=== PATIENT | female | born 1965 | race Caucasian/White ===

== ENCOUNTER → 2019-08-12 12:32 | Outpatient (CLI) | payer MEDICAID, SELFPAY ==
--- NOTE | 2019-08-12 12:37 | BI_ITS ---
MAMMOGRAPHY - BILATERAL SCREENING REASON FOR EXAM: Female, 54 years old. Routine annual screening examination. PERTINENT HISTORY: Non-contributory. TECHNIQUE: Digital bilateral breast nick (3D mammographic acquisition) in the CC and MLO projections. 2-D mediolateral oblique (MLO) and craniocaudad (CC) views of both breasts were obtained. CAD: Full Field Digital Mammography with Computer Added Detection was performed. COMPARISON: Comparison is made with prior examination dated September 04, 2012 and November 22, 2016. FINDINGS: Breast Composition: There are scattered areas of fibroglandular density. There are no dominant masses or suspicious calcifications. No other significant abnormalities are identified. There has been no significant change since the prior study. BI/SCREEN MAMM (CAD) W/NICK BILAT IMPRESSION: Stable bilateral screening mammogram. Yearly follow-up mammogram recommended. (A) ASSESSMENT CATEGORY: BIRADS Category 1: Negative. A letter regarding these results will be sent to the patient by the facility within 30 days. Approximately 10% of breast cancers are not detected by mammography. A normal mammogram should not delay biopsy of a clinically suspicious abnormality. [id number] Electronically Signed: Triston Serrano, at 8:40 EDT , Service support ,
== END ==
PROVIDERS: Family Provider Nurse Practitioner Family; PCP Nurse Practitioner Family; Referring Provider Nurse Practitioner Family
DX: Z12.31 Encounter for screening mammogram for malignant neoplasm of breast (principal)
CPT/HCPCS: 77063; 77067

== ENCOUNTER 2020-02-08 16:47 | Emergency (ER) | payer MEDICAID, SELFPAY ==
[2020-02-08 16:49] VITALS: BP 139/75; PULSE 69; RESP 17; TEMP 36.7; O2SAT 97; BMI 32.1
[2020-02-08 17:15] VITALS: BP 137/69; PULSE 64; RESP 15; O2SAT 98
--- NOTE | 2020-02-08 17:17 | EKG12_ITS ---
Test Reason : LOWER EXTREM PAIN Blood Pressure : / mmHG Vent. Rate : 062 BPM Atrial Rate : 062 BPM P-R Int : 164 ms QRS Dur : 092 ms QT Int : 456 ms P-R-T Axes : 045 021 049 degrees QTc Int : 462 ms Normal sinus rhythm Normal ECG Confirmed by RIGO SMITH, ALISON ([id number]), make up editor ASAD LINARES ([id number]) on 02/12/2020 9:09:48 AM Referred By: CINDY Confirmed By:ALISON SIERRA MD
--- NOTE | 2020-02-08 17:20 | ED.VIS.GEN ---
History of Present Illness Chief Complaint: Lower Extremity Injury Detail of Chief Complaint: Right thigh pain Informant: Patient Onset: Days Context: Gradual Onset Timing: Waxes and wanes Current Severity: Mild Maximum Severity: Severe Narrative: Patient presents with intermittent right thigh pain for the past 3 days. She states when this occurs she will have pain that radiates up into her abdomen, chest, and she feels short of breath and lightheaded. She denies history of blood clots. She denies recent history of injury. She was admitted to [facility] and had a nuclear stress test was unremarkable. While there she had arterial studies of her legs performed. Right leg ROBYN is 1.06, left is 1.04. - Past Medical History (1) Anxiety and depression Status: Chronic (2) Diabetes Status: Chronic (3) H/O heart artery stent Status: Chronic Past Medical History - Allergies and Home Meds Allergies/Adverse Reactions: Allergies Penicillins Allergy (Verified 02/08/20 16:48) Hives metformin Adverse Reaction (Verified 02/08/20 16:48) Upset Stomach Primary Care Physician: Isabel Francisco NP-C [Primary Care Provider] - Prior records reviewed: Yes Lives: With Family Smoking Status: Current every day smoker Review of Systems General: Denies: Chills, Fever Eyes: Denies: Visual changes - bilaterally ENT: Denies: Bilateral ear pain Cardiovascular: Reports: Chest pain. Denies: Palpitations, Heart racing Respiratory: Reports: Dyspnea. Denies: Cough, Sputum Gastrointestinal: Reports: Abdominal pain. Denies: Nausea, Vomiting, Diarrhea Genitourinary: Denies: Dysuria Musculoskeletal: Reports: Extremity Pain. Denies: Swelling Skin: Denies: Rash Neurological: Denies: Headache, Weakness, Parasthesia Hematologic: Denies: Easy bruising, Easy bleeding Allergy: Denies: Uticaria Physical Exam Vital Signs/Narrative: Vital Signs Temp Pulse Resp BP Pulse Ox 02/08/20 17:15 64 15 137/69 H 98 02/08/20 16:49 98.1 F 69 17 139/75 H 97 General: Well nourished, Well developed Head: Normocephalic ENT: Moist mucous membranes Neck: Supple Cardiovascular: Regular rate, Regular rhythm Respiratory: No distress, CTA bilaterally Abdomen: Soft, Nontender, Normal bowel sounds Extremities: - - Reproducible tenderness in the right thigh this time. No significant edema. No overlying skin changes. No palpable cords. Skin: Normal color, - - Strong distal pulses. Neurological: Alert, Oriented x3, Normal Strength, Normal Sensation Psychological: Normal affect Diagnostic/Tx/Re-eval Impressions Chest X-Ray 02/08/20 17:25 IMPRESSION: Minimal fibrosis or atelectasis of the left lung base. Electronically Signed: Ector Leiva MD at 17:49 EDT , Service support , Chest CTA 02/08/20 18:01 IMPRESSION: Normal CTA chest examination, without a demonstrated pulmonary embolism or arterial dissection. Coronary arterial calcifications are present. Electronically Signed: Ector Leiva MD at 19:40 EDT , Service support , 02/08/20 17:25 Chest 1 View (Portable) [RAD] Stat 02/08/20 18:01 CTA Chest W/WO Contrast [CT] Stat Laboratory Results 02/08/20 02/08/20 02/08/20 17:25 17:25 17:25 WBC 6.6 RBC 4.63 Hgb 14.4 Hct 41.1 MCV 88.8 MCH 31.1 MCHC 35.0 RDW Std Deviation 36.5 RDW Coeff of Chandana 11.3 L Plt Count 205 MPV 10.7 Immature Gran % (Auto) 0.300 Neut % (Auto) 58.4 Lymph % (Auto) 33.3 Harmon % (Auto) 4.2 Eos % (Auto) 3.3 Baso % (Auto) 0.5 Absolute Neuts (auto) 3.9 Absolute Lymphs (auto) 2.21 Nucleated RBC % 0 D-Dimer Quant (PE/DVT) 1.04 H* Sodium 136 Potassium 4.1 Chloride 104 Carbon Dioxide 25.0 Anion Gap 7 BUN 9 Creatinine 0.90 Estim Creat Clear Calc 59.11 Est GFR (MDRD) Af Amer 83 Est GFR (MDRD) Non-Af 69 BUN/Creatinine Ratio 10.0 Glucose 248 H Calcium 9.1 Troponin I < 0.015 - EKG Initial EKG Interpretation: Sinus Rhythm - Sinus at 62 with no acute ischemia. - Medical Decision Making Test results discussed with the patient. Her d-dimer is elevated. CTA of the chest is unremarkable. I do not have ultrasound available today to scan her leg. She will be given a dose of Lovenox and ordered for a ultrasound of her leg tomorrow. She voices understanding and agreement. ED Disposition - Plan for ED Patient: Disposition: Home or Assisted Living Diagnosis: Leg pain Instructions: Myalgias Referrals: Isabel Francisco, ANURADHA-C [Primary Care Provider] - Additional Instructions: You have been ordered to have an ultrasound of your leg tomorrow. If you do not hear from the hospital, please call in to check your appointment time.
--- NOTE | 2020-02-08 17:25 | RAD_ITS ---
STUDY: X-RAY CHEST REASON FOR EXAM: Female, 54 years old. LEG PAIN AND WEAKNESS WITH SOB TECHNIQUE: Single AP portable view of the chest. COMPARISON: None. FINDINGS: There is minimal fibrosis or atelectasis left lung base. There is no demonstrated pleural abnormality. Normal size heart. Normal mediastinum and mario. Normal visualized pulmonary arteries. Normal visualized aortic arch and descending thoracic aorta. Normal visualized thoracic spine. Normal visualized ribs, clavicles, and shoulders. There is no demonstrated abnormality of the visualized soft tissue structures of the upper abdomen. RAD/Chest 1 View (Portable) IMPRESSION: Minimal fibrosis or atelectasis of the left lung base. Electronically Signed: Ector Leiva MD at 17:49 EDT , Service support ,
[2020-02-08 17:34] LABS: Absolute Lymphocyte Count 2.21 X10^3/uL (0.83-4.51); Absolute Neutrophil Count 3.9 X10^3/uL (2.0-7.7); Basophil# 0.03 X10^3/uL; Basophil% 0.5 % (0-1); Eosinophil# 0.22 X10^3/uL; Eosinophils% 3.3 % (0-5); Hematocrit 41.1 % (37-47); Hemoglobin 14.4 g/dL (12.0-15.0); Lymphocyte # 2.21 X10^3/ul (4.0); Lymphocyte % 33.3 % (19-41); Mean Corpuscular Hgb 31.1 pg (27.0-32.0); Mean Corpuscular Volume 88.8 fL (81-99); Mean Platelet Vol. 10.7 fl (6.2-12.0); Monocyte# 0.28 X10^3/uL; Monocyte% 4.2 % (0-10); NRBC Flagged by Analyzer 0 % (0-5); Neutrophil # 3.88 X10^3/uL (2.7-7.7); Neutrophil % 58.4 % (47-70); Platelet Count 205 K/mm3 (150-450); RBC Distribution Width CV 11.3 % (11.6-14.6); RBC Distribution Width SD 36.5 fl (35.1-43.9); Red Blood Count 4.63 M/mm3 (4.2-5.4); White Blood Count 6.6 K/mm3 (4.4-11.0)
[2020-02-08 17:41] VITALS: BP 113/69; PULSE 65; RESP 14; O2SAT 98
[2020-02-08 17:52] LABS: Anion Gap 7 (5-15); BUN 9 mg/dL (7-18); Calcium,Total 9.1 mg/dL (8.5-10.1); Chloride 104 mmol/L (98-107); EST Glomerular Filtration Rate 69 mL/min (>60); Est Glom Filt Rate - Afr Amer 83 mL/min (>60); Estimated Creatinine Clearance 59.11 ml/min; Glucose 248 mg/dL (74-106); Potassium 4.1 mmol/L (3.5-5.1); Sodium Level 136 mmol/L (136-145)
[2020-02-08 17:57] LABS: D-Dimer Quantitative (DVT/PE) 1.04 FEU/ug/m (0.27-0.49)
--- NOTE | 2020-02-08 18:00 | NURSING ---
call from lab , d-dimer 1.04. dr. mya cannon .
--- NOTE | 2020-02-08 18:01 | CT_ITS ---
STUDY: CTA CHEST REASON FOR EXAM: Female, 54 years old. SOB, DIZZINESS, RIGHT LEG PAIN RADIATION DOSAGE (If Supplied By Facility): CTDIvol = ( 11.81 ) mGy, DLP = ( 506.09 ) mGycm TECHNIQUE: The examination was performed with the intravenous administration of 100ML ISOVUE 370. Post-processing of the angiographic images was performed, with multiplanar reformation and 3D reconstruction. Individualized dose optimization techniques were used for this CT. COMPARISON: None. FINDINGS: Normal enhancement of the main pulmonary artery and right and left pulmonary arteries. Normal enhancement of the bilateral peripheral pulmonary arteries. There is no demonstrated pulmonary embolism. Normal thoracic aorta and visualized great vessels. There is no demonstrated aortic dissection. The heart size is within normal limits. There is no pericardial effusion. Coronary arterial calcifications are present. Normal mediastinum. Normal hilar regions. Normal visualized trachea and bronchi. The lungs are well expanded. Normal pulmonary parenchyma. Normal pleura. Normal chest wall structures. There is mild endplate spondylosis of the thoracic spine. Normal visualized upper abdomen. CT/CTA Chest W/WO Contrast IMPRESSION: Normal CTA chest examination, without a demonstrated pulmonary embolism or arterial dissection. Coronary arterial calcifications are present. Electronically Signed: Ector Leiva MD at 19:40 EDT , Service support ,
[2020-02-08 19:19] VITALS: BP 121/83; PULSE 62; RESP 16; O2SAT 97
[2020-02-08 20:14] VITALS: BP 140/75; PULSE 63; RESP 15; O2SAT 97
[2020-02-08] MEDS: Enoxaparin 80 MG/0.8 ML Syringe SC (20:29)
== END 2020-02-08 20:34 | disposition home or self-care (01) ==
PROVIDERS: Emergency Provider Emergency Medicine; PCP Nurse Practitioner Family
DX: M79.651 Pain in right thigh (principal); E11.9 Type 2 diabetes mellitus without complications; F32.9 Major depressive disorder, single episode, unspecified; F41.9 Anxiety disorder, unspecified; F17.200 Nicotine dependence, unspecified, uncomplicated; Z79.4 Long term (current) use of insulin
CPT/HCPCS: 71045; 71275; 80048; 84484; 85025; 85379; 93005; 96372; 99284; Q9967; A4216

== ENCOUNTER → 2020-02-09 14:39 | Outpatient (CLI) | payer MEDICAID, SELFPAY ==
[2020-02-08 16:49] VITALS: BMI 32.1
--- NOTE | 2020-02-09 14:52 | VDLE_ITS ---
Reason For Study: Pain RIGHT LEFT GSV is normal. CFV is compressible, spontaneous, phasic, CFV is compressible, spontaneous, phasic, competent, and demonstrates normal competent and demonstrates normal augmentation. augmentation. FV is compressible, spontaneous, phasic, competent and demonstrates normal augmentation. POP V is compressible, spontaneous, phasic, competent and demonstrates normal augmentation. T/P Trunk is compressible. PTV is compressible. RT PerV is compressible. Procedure Exam performed in department. A preliminary report was called and/or faxed to Isabel Francisco NP. Interpretation Summary There is no evidence of right lower extremity deep vein thrombosis. Right great saphenous vein appears patent and compressible segmentally. Patent and compressible left common femoral Vein Ordering Physician: Carlos Esquivel Referring Physician: Isabel Francisco Performed By: Sunitha Irizarry, YASMEEN, RVT
== END ==
PROVIDERS: PCP Nurse Practitioner Family; Referring Provider Emergency Medicine; Visit Provider Emergency Medicine
DX: R60.0 Localized edema (principal)
CPT/HCPCS: 93971